=== PATIENT | female | born 1995 | race Caucasian/White ===

== ENCOUNTER 2019-06-07 20:17 | Outpatient (CLI) | payer MEDICAID ==
[2019-05-19 22:30] VITALS: BMI 37.0
[~2019-06-07 20:17] MED LIST: PRENAVITE1 TAB PO
[2019-06-07 20:55] LABS: BILIRUBIN NEGATIVE (NEGATIVE); GLUCOSE NEGATIVE (NEGATIVE); KETONE NEGATIVE (NEGATIVE); NITRITE NEGATIVE (NEGATIVE); SPECIFIC GRAVITY 1.025 (1.005-1.020); UROBILINOGEN NORMAL (NORMAL)
[2019-06-07 20:57] LABS: BACTERIA MANY /hpf (NEGATIVE); RED CELLS - URINE OCC /hpf (0-5); WHITE CELLS - URINE 0-5 /hpf (NEGATIVE)
[2019-06-09 23:04] LABS: PROTEIN - URINE 30.7 mg/dL (0.0-11.9)
== END 2019-06-07 21:50 | disposition home or self-care (01) ==
LOC: D.LDO 20:17
PROVIDERS: ATTEND Obstetrics & Gynecology
DX: O35.9XX0 Maternal care for (suspected) fetal abnormality and damage, unspecified, not applicable or unspecified (principal)

== ENCOUNTER 2019-06-22 20:03 | Inpatient (IN) | payer MEDICAID ==
[~2019-06-22] VITALS: Ht 162.6 cm; Wt 108.0 kg
--- NOTE | ~2019-06-22 | OP ---
PATIENT NAME: JENNIFER MAYNARD MEDICAL RECORD: [id number] :96 LOCATION:[id number] ADMISSION DATE:06/22/19 SURGEON: MORAIMA NORWOOD DO DATE OF OPERATION: 06/25/2019 PREOPERATIVE DIAGNOSIS: Failed induction of labor. POSTOPERATIVE DIAGNOSIS: Failed induction of labor. PRIMARY SURGEON: Moraima Norwood DO ANESTHESIA: Spinal. PROCEDURE: Primary low transverse section via Pfannenstiel incision. FINDINGS: Male infant, weight 7 pounds 2.8 ounces, delivered at 1634, Apgars 9 and 9. Normal appearing uterus, bilateral fallopian tubes, and bilateral ovaries. SPECIMENS: Placenta and cord blood. ESTIMATED BLOOD LOSS: 900 cc. URINE OUTPUT: 50 cc concentrated urine. COMPLICATIONS: None. CONDITION: Stable. PROCEDURE: Risks, benefits, alternatives and indications of the procedure were discussed with the patient. She voiced understanding of the procedure and signed the consent. She was taken to the OR where spinal anesthesia was administered and found to be adequate. She was prepped and draped in the normal sterile fashion. She was placed in dorsal supine position with a leftward tilt. A Pfannenstiel skin incision was made with a scalpel and carried down to the underlying layer of the fascia with the Bovie. The fascia was incised in the midline and extended laterally. The inferior aspect of the fascial incision was grasped with Adia clamps and the rectus muscle was dissected off sharply. Attention was then turned to the superior aspect of the fascial incision and the rectus muscle was dissected off in a similar fashion. The rectus muscle was in the midline down to the level of the peritoneum. The peritoneum was identified and noted to be free of adherent bowel and entered bluntly. The peritoneum was further with gentle traction. The bladder blade was inserted and the uterus was incised in a transverse fashion in the lower uterine segment. The incision was extended with cephalad caudad traction. The infant's head was brought to the incision. The infant was delivered without difficulty. Mouth and nose were suctioned. Cord was clamped and cut and the infant was handed off to awaiting pediatricians. The placenta was manually removed. The uterus was exteriorized and a moist lap was used to assure complete removal of placental membranes. The hysterotomy was closed with 0 Vicryl in a running fashion with good hemostasis with double layer closure. The posterior cul-de-sac was irrigated with warm sterile water and all blood clots and fluid were removed from the posterior cul-de-sac. Uterus, tubes, and ovaries were noted to be normal and returned back to the abdominal cavity. A moist laparotomy sponge was used to assure complete removal of blood clots and fluid OPERATIVE REPORT [id number] JENNIFER MAYNARD from the abdominal cavity. The hysterotomy was reinspected and noted to be hemostatic. The rectus muscle was closed with 2-0 Monocryl in a running fashion. There was a small area of bleeding noted at the right upper portion of the rectus muscle, which was ligated with 2-0 Monocryl with good hemostasis noted following. The fascial incision was closed with 0 Vicryl in running fashion with good hemostasis. The subcutaneous fat was closed with 2-0 plain in a running fashion with good hemostasis. The skin was closed in a subcuticular fashion with Dermabond, covering. All needle, lap, sponge, and instrument counts were correct times 2. The patient tolerated the procedure well and she was taken to recovery room in stable condition. TRANSINT:[id number] Voice Confirmation ID: [id number] DOCUMENT ID: [id number] MORAIMA NORWOOD DO CC: [id number] DICTATION DATE: 06/25/191822 LENS MOLDER: 06/26/19 0113 [facility] IN [facility] [address] [place] [address]
[2019-06-22 20:14] VITALS: BP 125/76; Ht 162.6 cm; Wt 108.0 kg
[2019-06-22 21:11] LABS: HEMATOCRIT 41.2 % (36.0-48.0); HEMOGLOBIN 14.1 g/dL (12-16); MCH 29.2 pg (26.0-34.0); MCHC 34.2 g/dL (31.0-37.0); MCV 85.3 fL (80.0-100.0); MEAN PLATELET VOLUME 10.2 fL (7.4-10.4); PLATELET COUNT 196 10x3/uL (130-400); RBC 4.83 10x6/uL (4.00-5.40); RDW 12.8 % (11.5-14.5); WBC 11.7 10x3/uL (4.8-10.8)
[2019-06-22 21:34] LABS: EOSINOPHILS 1 % (0-7); LYMPHOCYTES 20 % (15-50); MONOCYTES 6 % (2-11); NEUTROPHILS 73 % (40-80); PLATELET ESTIMATE NORMAL
[2019-06-22 22:01] LABS: UDS - AMPHET NEGATIVE QUAL (NEGATIVE); UDS - BARB NEGATIVE QUAL (NEGATIVE); UDS - BENZO NEGATIVE QUAL (NEGATIVE); UDS - COCAINE NEGATIVE QUAL (NEGATIVE); UDS - OPIATE POSITIVE QUAL (NEGATIVE); UDS - PCP NEGATIVE QUAL (NEGATIVE); UDS - THC NEGATIVE QUAL (NEGATIVE)
[2019-06-24 05:09] LABS: RAPID PLASMA REAGIN Non Reactive (Non Reactive)
[2019-06-24 13:09] LABS: UDSC - AMPHET Negative ng/mL (Cutoff=1000); UDSC - BARB Negative ng/mL (Cutoff=300); UDSC - BENZO Negative ng/mL (Cutoff=300); UDSC - COC Negative ng/mL (Cutoff=300); UDSC - METH Negative ng/mL (Cutoff=300); UDSC - OPIATES Negative ng/mL (Cutoff=300); UDSC - PCP Negative ng/mL (Cutoff=25); UDSC - PROPOXY Negative ng/mL (Cutoff=300); UDSC - THC Negative ng/mL (Cutoff=50)
--- NOTE | 2019-06-24 13:33 | NUR ---
PT USING CALL LIGHT TO REQUEST EPIDURAL. PT STATES "I JUST CAN'T TAKE THIS PAIN-IT'S TOO MUCH FOR ME TO HANDLE." NOTIFIED DR NORWOOD, ONE TIME ORDER FOR MORPHINE 2MG SIVP NOW AND MAY HAVE EPIDURAL AFTER MAX EFFECT IF PT STILL DESIRES. RELAYED TO PT WHO STATES UNDERSTANDING.
[2019-06-25] VITALS (7 sets, daily range): BP systolic 103–142; BP diastolic 58–68
--- NOTE | 2019-06-25 16:39 | NUR ---
BABY BOY @ 1635 PLACENTA @ [id number]
--- NOTE | 2019-06-25 17:44 | NUR ---
PATIENT READY FOR PHASE 2 HOWEVER THERE IS NOT AN L&D NURSE AVAILABLE TO TAKE REPORT ON PATIENT. WILL WAIT FOR BUILDING CONSTRUCTION ENGINEER.
--- NOTE | 2019-06-25 18:30 | NUR ---
RECEIVED PT FROM RR RN, POST C/S BY DR. NORWOOD. PT HAS WHITE DRESSING OVER INCISION, ICE PACK IS IN PLACE, ABDOMEN PALPATES SOFT FUNDUS FIRM, U/2, SMALL RUBRA LOCHIA, NO CLOTS EXPELLED. SCD'S ARE ON. PITOCIN 20 UNITS INFUSING AT 125 ML/HR ON PUMP. BARRIOS CATH IN PLACE, DRAINING DARK YELLOW URINE. PT CAN WIGGLE TOES, WEAKNESS NOTED TO BOTH LEGS DUE TO SPINAL ANESTHESIA. PT IS SITTING UP IN THE BED, . PT DENIES ALL OTHER NEEDS AT THIS TIME. SRUP X2, CALL LIGHT AND PHONE WITHIN REACH.
--- NOTE | 2019-06-25 19:40 | NUR ---
PM ROUNDS MADE, PT AT THIS TIME, INFORMED PT THAT I WILL COME BACK TO DO ASSESSMENT, PT VERBALIZES UNDERSTANDING, DENIES NEEDS AT THIS TIME, FOB AND MOTHER AT BEDSIDE
--- NOTE | 2019-06-25 20:23 | NUR ---
ASSESSMENT PER FLOW SHEET, VS OBTAINED, IV IN LEFT HAND INTACT WITH NO REDNESS OR EDEMA INFUSING VIA PUMP LR WITH PITOCIN AT 125 ML/HR, FF, ML, U/1, LITE BLEEDING NOTED WITH NO CLOTS, LATRELL CARE DONE WITH WET WARM WASH CLOTHS, BIKINI INC WITH LARGE DRESSING CDI WITH NO DRAINAGE, FRESH ICE PACK APPLIED, PT REPORTS FLATUS, BARRIOS CATH INTACT DRAINING DARK YELLOW URINE, PT ENC TO DRINK PLENTY OF FLUIDS, FRESH H20 SERVED, PT C/O PAIN, ADM MORPHINE DILUTED IN 5MLS OF NS, SIVP, PER MD ORDERS, SEE EMAR, SCD'S ON AND WORKING PROPERLY, INFORMED PT THAT SHE WILL BE MOVED TO ANOTHER ROOM, PT VERBALIZES UNDERSTANDING, DENIES FURTHER NEEDS AT THIS TIME, BED IN LOW POSITION, SIDE RAILS X 2, CALL LIGHT IN REACH, INFANT IN OPEN CRIB CART AND FAMILY AT BEDSIDE FAMILY AT BEDSIDE
--- NOTE | 2019-06-25 21:28 | NUR ---
PT AWAKE, VISITING WITH FAMILY AND FRIENDS, FEMALE FRIEND HOLDING INFANT, INFORMED PT THAT I WILL BE MOVING HER SHORTLY, PT VERBALIZES UNDERSTANDING, PT DENIES NEEDS AT THIS TIME
--- NOTE | 2019-06-25 21:53 | NUR ---
INFORMED PT THAT I WILL BE MOVING HER NOW, ZEYAD AND HIS FRIEND TRANSFERRED ALL BELONGINGS TO ROOM 1257
--- NOTE | 2019-06-25 22:00 | NUR ---
INFANT IN OPEN CRIB CART BACK TO NSY PER THIS RN
--- NOTE | 2019-06-25 22:15 | NUR ---
PT TRANSFERRED VIA BED TO ROOM 1257, FOB AND MOTHER AT SIDE, PT STATES "I FEEL LIKE I'M BLEEDING ALOT", CHANGED LATRELL PAD, SMALL BLEEDING NOTED WITH NO CLOTS, PT STATES "IS IT NORMAL TO BLEED", INFORMED PT THAT IT WAS NORMAL AND THAT I WILL BE KEEPING A CLOSE CHECK ON HER BLEEDING THROUGHOUT THE EVENING, PT VERBALIZES UNDERSTANDING, PT INST ON AND DEMONSTRATED I.S. WITH GOOD EFFORT, NEW BAG OF NS WITH PITOCIN HUNG VIA PUMP INFUSING AT 125 ML/HR, SCD'S ON AND WORKING PROPERLY, PT ORIENTED TO ROOM, BED IN LOW POSITION, SIDE RAILS X 2, CALL LIGHT IN REACH
--- NOTE | 2019-06-25 23:10 | NUR ---
PT SQUEEZER OPERATOR LIGHT, PT REQUESTED AND PROVIDED PILLOWS UNDER ARMS FOR INFANT, PT DENIES FURTHER NEED AT THIS TIME
[2019-06-26 00:10] VITALS: BP 107/67
--- NOTE | 2019-06-26 01:44 | NUR ---
NSY CALLS UNIT, REPORTS PT IS READY TO TAKE A NAP, THIS RN TO ROOM, PT RATES INC PAIN 07/20, STATES "IT'S A LOT BETTER RIGHT NOW", SCD'S ON AND WORKING PROPERLY, FOB SERVES PT FRESH H20, PT DENIES FURTHER NEEDS, INFANT TO NSY VIA OPEN CRIB CART PER THIS RN, BEDDING PROVIDED TO FOB
[2019-06-26 04:30] VITALS: BP 119/70
--- NOTE | 2019-06-26 04:30 | NUR ---
PT AWAKE, VS OBTAINED, IV SALINE LOCKED, LATRELL CARE DONE WITH WET WARM WASH CLOTHS, LATRELL PAD AND WHITE CHUX CHANGED, LITE BLEEDING NOTED WITH NO CLOTS, PT C/O INC PAIN, INFORMED PT THAT I WILL ADM MORPHINE AND THAT TORADOL WAS DUE AT 0630, PT VERBALIZES UNDERSTANDING, FRESH ICE PACK TO ABD, SCD' CONTINUE ON AND WORKING PROPERLY, BED IN LOW POSITION, SIDE RAILS X 2, CALL LIGHT IN REACH, FOB AT BEDSIDE
--- NOTE | 2019-06-26 04:48 | NUR ---
SALINE LOCK FLUSHED, ADM MORPHINE DILUTED IN 5MLS OF NS, SIVP, PER MD ORDERS, SALINE LOCK FLUSHED, PT DENIES FURTHR NEEDS AT THIS TIME
--- NOTE | 2019-06-26 06:33 | NUR ---
PT AWAKE, ADM TORADOL DILUTED IN 5MLS OF NS, SIVP, PER MD ORDERS, SEE EMAR, BARRIOS CATH REMOVED, TIP INTACT, PT STATES "I FEEL LIKE I NEED TO PEE", PT UP TO BR WITH THIS RN AND FOB, GAIT STEADY, PT TO COMMODE, PT INST TO USE CALL LIGHT FOR ANY ASSISTANCE, PT VERBALIZES UNDERSTANDING, FOB IN BR WITH PT
[2019-06-26 06:35] LABS: HEMATOCRIT 28.7 % (36.0-48.0); HEMOGLOBIN 9.6 g/dL (12-16); MCH 28.7 pg (26.0-34.0); MCHC 33.4 g/dL (31.0-37.0); MCV 85.7 fL (80.0-100.0); MEAN PLATELET VOLUME 9.7 fL (7.4-10.4); PLATELET COUNT 227 10x3/uL (130-400); RBC 3.35 10x6/uL (4.00-5.40); WBC 22.7 10x3/uL (4.8-10.8)
--- NOTE | 2019-06-26 07:54 | NUR ---
THIS RN TO ROOM FOR SHIFT ASSESSMENT. PT NOTED TO BE SITTING UP IN BED, AAOx3, STATES SHE JUST GOT UP TO BR RECENTLY TO VOID. 100ML CLEAR YELLOW URINE NOTED IN URINE HAT. SHIFT ASSESSMENT COMPLETE, VSS, SEE FLOWSHEET FOR DOC. PT C/O PAIN RATED 8/10 AT THIS TIME, REQUESTING ADDITIONAL PAIN MEDICATION. WILL NOTIFY MD FOR PO PAIN MED ORDERS. PT STATES SHE ATE SOME OF REGULAR DIET BREAKFAST TRAY, BUT DIDN'T WANT TO EAT TOO MUCH AND BECOME NAUSEATED. LEFT HAND PIV SALINE LOCK NOTED TO BE C/D/I, NO SIGNS OF PHLEBITIS. DRESSING OVER LOW TRANSVERSE ABD INCISION IS C/D/I, NO DRAINAGE NOTED. FF, ML, U/1. SCANT TO SMALL RUBRA LOCHIA NOTED, NO CLOTS. SCD'S ON LE BILAT ARE PLACED ON PUMP AND TURNED ON. MODERATE TO SEVERE GENERALIZED EDEMA NOTED TO LE BILAT, MILDLY PITTING WITH ASSESSMENT. PEDAL PULSES 2+ BILAT, NEG HOMANS SIGN BILAT. NEW ICE PACK PLACED TO ABD AND SMALL SURGERY PILLOW PROVIDED FOR SUPPORT OF ABD WITH DEEP BREATHING/COUGHING. PT INSTRUCTED TO CONTINUE USE OF INCENTIVE SPIROMETER EVERY 2 HOURS. POC DISCUSSED, PT STATES SHE WANTS TO SHOWER TODAY AND WILL WALK HALLS LATER. INSTRUCTED ON S/S TO REPORT, CONTINUE MEASURING VOIDS AT THIS TIME, AND TO CALL FOR ANY NEEDS. UNDERSTANDING VERBALIZED. SRUx2, CL IN REACH. PT PLACING TO BREAST FOR FEEDING, SIG OTHER ASSISTING. WILL NOTIFY MD OF PAIN MED REQUEST.
--- NOTE | 2019-06-26 08:30 | NUR ---
DR NORWOOD ON UNIT, PO PAIN MED ORDERS RECEIVED.
--- NOTE | 2019-06-26 08:35 | NUR ---
DR NORWOOD GIVEN VERBAL REPORT ON WBC, STATES WILL RECHECK TOMORROW.
--- NOTE | 2019-06-26 08:44 | NUR ---
PERCOCET 10 ADMIN PER PT C/O PAIN RATED 8/10, REQUESTING PAIN MED. ADMIN ORDERED, SEE EMAR FOR DOC. PT STATES SHE WANTS TO NAP NOW SHE HAS GOTTEN VERY LITTLE SLEEP. SRUx2, CL IN REACH. LIGHTS IN ROOM DIMMED FOR REST. SIG OTHER ON BEDSIDE COUCH. INFANT TRANSFERRED TO NURSERY VIA [place] TO CARE OF Will HOWELL RN.
[2019-06-26 08:54] VITALS: BP 109/68
[2019-06-26 09:57] LABS: LYMPHOCYTES 8 % (15-50); MONOCYTES 10 % (2-11); NEUTROPHILS 80 % (40-80); PLATELET ESTIMATE NORMAL
[2019-06-26 09:58] LABS: ANISOCYTOSIS OCC; HYPOCHROMASIA OCC
--- NOTE | 2019-06-26 10:26 | NUR ---
THIS RN TO ROOM FOR PT CHECK. PT NOTED TO BE IN BED, SUPINE WITH HOB APPROX 45DEGREES, RESTING WITH EYES CLOSED, RESP EVEN AND UNLABORED. SIG OTHER RESTING ON BEDSIDE COUCH. PT LEFT UNDISTURBED FOR REST. SRUx2, CL IN REACH. WILL CONT TO MONITOR.
--- NOTE | 2019-06-26 12:50 | NUR ---
THIS RN TO ROOM FOR PT CHECK. PT SITTING UP IN CHAIR IN ROOM, HOLDING . PT STATES SHE HAS BEEN UP TO VOID AGAIN TWICE, MEASURED AND NOTED TO BE 800ML FOR BOTH VOIDS. PT C/O PAIN RATED 8/10, WORSE WITH MOVEMENT. MOTRIN AND PERCOCET ADMIN ORDERED, SEE EMAR FOR DOC. PT DRINKING AND EATING FROM LUNCH TRAY SO THAT MEDS AREN'T ON EMPTY STOMACH. PT C/O ICE PACK LEAKING ON BED. BED LINENS CHANGED, NEW ICE PACK PROVIDED TO ABD. TRASH BAGS IN ROOM REPLACED. TOWELS AND CLOTHS PROVIDED FOR SHOWER. PT STATES SHE WILL FINISH , THEN EAT AND SHOWER. PT ENCOURAGED. SIG OTHER IN ROOM WITH PT. WILL CONT TO MONITOR.
--- NOTE | 2019-06-26 14:48 | NUR ---
THIS RN TO ROOM FOR PT CHECK. PT STATES SHE IS READY TO SHOWER. PT PIV D/C'D PER POLICY AND NO LONGER INDICATED. PRESSURE HELD AND BANDAID APPLIED. PT UP TO SHOWER. INSTRUCTED ON REMOVING ABD DRESSING, DENIES WANTING THIS RN TO ASSIST, STATES HER SIG OTHER WILL HELP HER IN SHOWER AND TO REMOVE DRESSING. PT INSTRUCTED ON PULL CORD IN BR IF IN NEED OF ASSISTANCE. INFANT TRANSFERRED TO NURSERY TO CARE OF ALTON OLIVO [facility]. WILL CONT TO MONITOR.
--- NOTE | 2019-06-26 15:05 | NUR ---
PT OUT OF SHOWER AND DRESSED, STATES SHE SHE FEELS MUCH BETTER AND PAIN LEVEL IS COMING DOWN, RATES PAIN 6/10, STATES IT IS JUST HURTING WITH SO MUCH MOVEMENT/ACTIVITY. ABD INCISION IS C/D WITH DERMABOND INTACT. NO REDNESS, SWELLING, OR EDEMA NOTED.
--- NOTE | 2019-06-26 15:11 | NUR ---
ORDERS RECEIVED FOR COLACE BID AND BENADRYL PRN SLEEP.
--- NOTE | 2019-06-26 15:11 | NUR ---
DR NORWOOD TO PT ROOM FOR PT ROUNDING, ASSESSING PT AND DISCUSSING POC.
--- NOTE | 2019-06-26 16:10 | NUR ---
PT CALLS OUT OUTPATIENT PHYSICAL THERAPIST LIGHT STATING HER IV SITE IS LEAKING AND SHE NEEDS NEW BANDAID. THIS RN TO ROOM. LEFT HAND PIV NOTED TO HAVE SEROSANGUINOUS DRAINAGE. NO SIGNS OF PHLEBITIS OR INFECTION. NEW BANDAID APPLIED, WARM INFANT HEEL PACK APPLIED TO SITE FOR DISCOMFORT AND TO ENCOURAGE FLUID REABSORPTION. PT DENIES FURTHER NEEDS. SRUx2 x2, CL IN REACH. WILL CONT TO MONITOR.
--- NOTE | 2019-06-26 16:12 | NUR ---
NEW ICE PACK TO ABD INCISION PER PT REQUEST FOR PAIN.
--- NOTE | 2019-06-26 17:05 | NUR ---
PT PRESSES CALL LIGHT AND REQUESTS PAIN MEDICATION. THIS RN TO ROOM. PT STATES SHE IS HAVING INCISIONAL PAIN AND HAS HICCUPS WHICH ARE MAKING IT WORSE. PT RATES PAIN 7/10 AT THIS TIME. PERCOCET ADMIN ORDERED, SEE EMAR FOR DOC. PT SITTING UP IN BED WITH DINNER TRAY ON BEDSIDE TABLE, STATES SHE IS GOING TO WAIT UNTIL HICCUPS SETTLE AND EAT DINNER. DENIES NAUSEA OR ANY NEEDS. SRUx2, CL IN REACH.
--- NOTE | 2019-06-26 17:45 | NUR ---
THIS RN TO ROOM FOR PAIN REASSESSMENT. PT STATES HER CRAMPING IS "A LITTLE BETTER." POC DISCUSSED WITH PT, PT STATES SHE DOES WANT TO D/C TO HOME THIS PM. WILL PROCEED WITH DISCHARGE ORDERED.
[2019-06-26 20:00] VITALS: BP 115/70
--- NOTE | 2019-06-26 20:00 | NUR ---
THIS RN TO BEDSIDE FOR SHIFT ASSESSMENT. REC'D PT AA&O X 4 SITTING UP IN BED ATTEMPTING TO NURSE BABY. UNSUCCESSFUL AT THIS TIME. BABY TRANSFERED TO DADS ARMS. PT'S HOB LOWERED. VITAL SIGNS OBTAINED. SEE FLOWSHEET. PAIN ASSESSED. PT REPORTS INCISIONAL PAIN 5-09/19. NEXT PAIN MEDICATION SCHEDULED FOR 2099. PT INFORMED IT WILL BE BROUGHT AT THAT TIME. PT AGREEABLE. PT DECLINES OFFERS TO BRING HER ANYTHING TO EAT OR DRINK AT THIS TIME. TRASH REMOVED FROM ROOM AT THIS TIME. BED LOW, SIDE RAILS UP X 2. CALL LIGHT AT PT'S SIDE.
--- NOTE | 2019-06-26 21:00 | NUR ---
ROUNDS MADE AND PAIN MEDICATION AND COLACE ADMINISTERED. PT NEEDING ASSISTANCE W/GETTING BABY AWAKE FOR . ASSISTANCE PROVIDED. NO FURTHER NEEDS VOICED AT THIS TIME.
--- NOTE | 2019-06-26 22:00 | NUR ---
ROUNDS MADE FOR PAIN REASSESSMENT. PT AA&O SITTING UP IN BED. PAIN REASSESED. PT RATES PAIN 3-4/10. HAS ICE CAP ON INCISION. REPORTS SHE FEELS MUCH BETTER. SIG OTHER LEAVING FOR HOME. PT REQUESTING BABY TO GO TO NURSERY SO SHE CAN REST. PT DENIES PERSONAL NEEDS. BABY TRANSPORTED VIA OPEN CRIB TO [facility].
--- NOTE | 2019-06-27 00:15 | NUR ---
ROUNDS MADE. PT CURRENTLY UP AMBULATING IN ROOM W/BABY UP IN ARMS. PAIN AND NEEDS ASSESSED. PT REPORTS INCISIONAL PAIN 4-5/10. INFORMED MAY HAVE MOTRIN IN APPROX 25MINS. THIS RN WILL BRING TO PT AT THAT TIME. PT DENIES NEEDS AT THIS TIME.
--- NOTE | 2019-06-27 00:50 | NUR ---
THIS RN TO ROOM FOR ADMIN OF PAIN MEDICATION. PERCOCET 10/325MG 1 TAB AND MOTRIN 600MG GIVEN FOR C/O PAIN 10/19. FRESH ICE WATER SERVED IN [facility]. PT DENIES FURTHER NEEDS AT THISTIME.
--- NOTE | 2019-06-27 02:00 | NUR ---
ROUNDS MADE FOR PAIN REASSESSMENT. PT CURRENTLY SPEAKING W/NBN FOR ASSISTANCE W/NURSING. PT NOW REPORTS PAIN IS "MUCH BETTER". RATES PAIN 4/10. DENIES NEEDS AT THIS TIME.
--- NOTE | 2019-06-27 02:00 | NUR ---
ROUNDS MADE FOR TYLENOL ADMIN. PT REMAINS IN BED W/BABY TO BREAST. PT REPORTS ABD CRAMPING CONTINUES. STATES "THE MOTRIN JUST ISN'T HELPING THE CRAMPING." SEE EMAR FOR DOCUMENTATION. PT DENIES NEEDS AT THIS TIME. BED LOW, SIDE RAILS UP X 2. CALL LIGHT AT PT'S SIDE.
[2019-06-27 04:00] VITALS: BP 97/55
--- NOTE | 2019-06-27 04:00 | NUR ---
ROUNDS MADE. PT LYING AWAKE IN BED. PAIN AND NEEDS ASSESSED. VITAL SIGNS OBTAINED. PT REPORTS PAIN IS BEGINNING TO INCREASE. RATES 5/10. SANDWICH TRAY SERVED PER PT'S REQUEST.
--- NOTE | 2019-06-27 06:45 | NUR ---
THIS RN TO BEDSIDE TO ADMIN MOTRIN. UPON ENTERING THE ROOM, PT FOUND TO BE SLEEPING FOR THE FIRST TIME ON PM SHIFT. PT LEFT UNDISTURBED AT THIS TIME.
[2019-06-27 06:54] LABS: BASOPHILS 0.1 % (0-2); EOSINOPHILS 0.7 % (0-7); HEMATOCRIT 25.2 % (36.0-48.0); HEMOGLOBIN 8.3 g/dL (12-16); IMMATURE GRANULOCYTES 0.3 % (0-5); LYMPHOCYTES 15.5 % (15-50); MCH 28.9 pg (26.0-34.0); MCHC 32.9 g/dL (31.0-37.0); MEAN PLATELET VOLUME 9.5 fL (7.4-10.4); MONOCYTES 10.8 % (2-11); NEUTROPHILS 72.6 % (40-80); PLATELET COUNT 201 10x3/uL (130-400); RBC 2.87 10x6/uL (4.00-5.40); RDW 13.1 % (11.5-14.5)
--- NOTE | 2019-06-27 07:00 | NUR ---
REPORT GIVEN TO ONCOMING AM SHIFT.
[2019-06-27 07:05] LABS: MCV 87.8 fL (80.0-100.0); WBC 14.1 10x3/uL (4.8-10.8)
[2019-06-27 08:00] VITALS: BP 112/68
--- NOTE | 2019-06-27 09:00 | NUR ---
PT REQUESTS ABDOMENAL BINDER FOR SUPPORT TO FACILITATE AMBULATING. ORDER RECEIVED FOR BINDER.
--- NOTE | 2019-06-27 09:24 | NUR ---
AT BEDSIDE FOR SHIFT ASSESSMENT. ASSESMENT COMPLETE. SEE FLOWSHEET. PT C/O PAIN AT INCISION SITE.
--- NOTE | 2019-06-27 09:30 | NUR ---
UP TO SHOWER. CHG GIVEN.
--- NOTE | 2019-06-27 10:26 | NUR ---
DR. NORWOOD HERE TO SEE PT.
[2019-06-27 14:45] VITALS: BP 97/64
--- NOTE | 2019-06-27 15:09 | NUR ---
UP AMBULATING IN HALLWAY PUSHING INFANT IN CRIB ACCOMPANIED BY FOB. STATES ABDOMENAL BINDER HELPS TREMENDOUSL WITH PAIN AND DISCOMFORT.
[2019-06-27 15:59] LABS: BASOPHILS 0.1 % (0-2); EOSINOPHILS 0.6 % (0-7); HEMATOCRIT 28.6 % (36.0-48.0); HEMOGLOBIN 9.2 g/dL (12-16); IMMATURE GRANULOCYTES 0.4 % (0-5); MCH 28.5 pg (26.0-34.0); MCHC 32.2 g/dL (31.0-37.0); MCV 88.5 fL (80.0-100.0); MEAN PLATELET VOLUME 9.6 fL (7.4-10.4); MONOCYTES 9.8 % (2-11); NEUTROPHILS 75.1 % (40-80); PLATELET COUNT 241 10x3/uL (130-400); RBC 3.23 10x6/uL (4.00-5.40); RDW 13.2 % (11.5-14.5); WBC 14.1 10x3/uL (4.8-10.8)
[2019-06-27] MEDS ORDERED: FERROUS SULFAT325 MG PO (16:38)
[2019-06-27] MEDS ORDERED: PERCOCET 5-3251 TAB PO (16:39)
--- NOTE | 2019-06-27 17:26 | NUR ---
REVIEWED DISCHARGE INSTRUCTIONS WITH PATIENT. STATES UNDERSTANDING. PRESCRIPTION GIVEN. APPOINTMENT TIME GIVEN.
--- NOTE | 2019-06-27 17:45 | NUR ---
DISCHARGED HOME VIA WHEELCHAIR TO PRIVATE VEHICLE WITH FOB AND ACCOMPANIED BY THIS NURSE.
== END 2019-06-27 17:48 | disposition home or self-care (01) | DRG 788 ==
LOC: D.LD 20:03
PROVIDERS: ADMIT Student in an Organized Health Care Education/Training Program; ATTEND Student in an Organized Health Care Education/Training Program
PROC: 10D00Z1 Extraction of Products of Conception, Low, Open Approach (ICD-10-PCS; principal; 2019-06-25 15:36)
DX: O61.0 Failed medical induction of labor (principal); Z3A.39 39 weeks gestation of pregnancy; Z37.0 Single live birth; R00.0 Tachycardia, unspecified; O75.89 Other specified complications of labor and delivery; D72.829 Elevated white blood cell count, unspecified